=== PATIENT | female | born 1965 | race Caucasian/White ===

== ENCOUNTER 2016-10-05 09:00 | Emergency (ER) | payer OTHER ==
[~2016-10-05] VITALS: Ht 170.2 cm; Wt 66.9 kg
[~2016-10-05 09:00] MED LIST: METO25TA35 PO
[2016-10-05 09:02] VITALS: BP 126/79
[2016-10-05] MEDS ORDERED: ONDANSETRON 2MG/ML, 2ML ONE (09:57)
[2016-10-05] MEDS ORDERED: ONDANSETRON 2MG/ML, 2ML IVPush ONE (10:00)
[2016-10-05] MEDS ORDERED: MORPHINE SULFATE 4 MG/ML, 1ML IVPush PRN (10:00)
[2016-10-05] MEDS ORDERED: SODIUM CHLORIDE FLUSH 10ML SYR IVF ONE (10:00)
[2016-10-05] MEDS ORDERED: SODIUM CHLORIDE 0.9% 1,000ML IVBOLUS ONE (10:00)
[2016-10-05 10:15] LABS: ASPARTATE AMINO TRANSFERASE 15 U/L (15-37); BLOOD UREA NITROGEN 11 mg/dL (7-18)
== END 2016-10-05 11:42 | disposition home or self-care (01) ==
LOC: ED 09:17
DX: R10.11 Right upper quadrant pain (principal)
CPT/HCPCS: 36415; 76700; 80053; 81003; 83605; 83690; 85025; 87040; 96361; 96374; 99285; J2405; J7030